=== PATIENT | male | born 1985 | race Caucasian/White ===

== ENCOUNTER 2018-08-01 17:01 | Emergency (ER) | payer MEDICAID ==
[2018-08-01] MEDS ORDERED: CYCLOBENZAPRINE 10 MG TABLET PO STA (17:15)
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
[2018-08-01 18:59] VITALS: BP 123/74
== END 2018-08-01 18:57 | disposition home or self-care (01) ==
LOC: ED 17:01
DX: S20.229A Contusion of unspecified back wall of thorax, initial encounter (principal); W51.XXXA Accidental striking against or bumped into by another person, initial encounter; R03.0 Elevated blood-pressure reading, without diagnosis of hypertension
CPT/HCPCS: 72070; 99283; A9270

== ENCOUNTER 2019-04-28 17:34 | Emergency (ER) | payer MEDICAID ==
[2019-04-28] MEDS ORDERED: KETOROLAC 60 MG/2 ML VIAL IM STA (18:02)
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
[2019-04-28 18:22] LABS: BASOPHILS # (AUTO) 0.1 10^3/uL (0.0-0.1); BASOPHILS % (AUTO) 0.8 %; EOSINOPHILS # (AUTO) 0.4 10^3/uL (0.0-0.7); EOSINOPHILS % (AUTO) 4.8 %; HGB - HEMOGLOBIN 14.4 g/dL (14.0-18.0); LYMPHOCYTES # (AUTO) 2.8 10^3/uL (1.5-3.5); LYMPHOCYTES % (AUTO) 33.7 %; MEAN CORPUSCULAR HEMOGLOBIN 30.3 pg (27.0-31.0); MEAN CORPUSCULAR HGB CONC 33.3 g/dL (32.0-36.0); MEAN CORPUSCULAR VOLUME 91.2 fL (80.0-94.0); MEAN PLATELET VOLUME 10.8 fL (7.4-11.4); MONOCYTES # (AUTO) 0.7 10^3/uL (0.0-1.0); MONOCYTES % (AUTO) 8.5 %; NEUTROPHILS # (AUTO) 4.2 10^3/uL (1.5-6.6); NEUTROPHILS % (AUTO) 51.4 %; PLT - PLATELET COUNT 245 10^3/uL (130-450); RED BLOOD COUNT 4.75 10^6/uL (4.70-6.10); RED CELL DISTRIBUTION WIDTH 12.7 % (12.0-15.0); WHITE BLOOD COUNT 8.3 x10^3/uL (4.8-10.8)
[2019-04-28 18:36] LABS: CREATININE 0.7 mg/dL (0.6-1.2)
--- NOTE | 2019-04-28 19:00 | XRAY Report ---
Reason: R knee pain, s/p fall Procedure Date: 04/28/2019 Accession Number: [id number] / [id number] Procedure: XR - Knee 4 View RT CPT Code: FULL RESULT: EXAM: RIGHT KNEE RADIOGRAPHY EXAM DATE: 04/28/2019 06:48 PM. CLINICAL HISTORY: R knee pain, s/p fall. COMPARISON: None. TECHNIQUE: 4 views, including oblique views. FINDINGS: Bones: No definite fracture or other bone lesion. Insertional calcification of the patella. Small exostosis arising from the medial proximal tibial metaphysis and pointing distally. Joints: Unremarkable. No definite effusion. Soft Tissues: Mild prepatellar soft tissue swelling. IMPRESSION: 1. Mild soft tissue swelling. 2. Incidental chronic findings as noted. RADIA
--- NOTE | 2019-04-28 19:01 | XRAY Report ---
Reason: R ankle pain x 2 weeks, s/p fall Procedure Date: 04/28/2019 Accession Number: [id number] / [id number] Procedure: XR - Ankle 3 View RT CPT Code: FULL RESULT: EXAM: RIGHT ANKLE RADIOGRAPHY EXAM DATE: 04/28/2019 06:48 PM. CLINICAL HISTORY: R ankle pain x 2 weeks, s/p fall. COMPARISON: None. TECHNIQUE: 3 views. FINDINGS: Bones: Regular thickening along the lateral surface of the distal tibial metaphysis and diametaphysis, most likely related to old trauma. No acute fracture or other bone lesion. Joints: Normal. No effusion. No subluxations. The ankle mortise is normally aligned. Soft Tissues: Mild soft tissue swelling over the malleoli. IMPRESSION: Soft tissue swelling. RADIA
[2019-04-28 19:24] VITALS: BP 134/77
== END 2019-04-28 19:24 | disposition home or self-care (01) ==
LOC: ED 17:34
DX: S39.012A Strain of muscle, fascia and tendon of lower back, initial encounter (principal); S93.401A Sprain of unspecified ligament of right ankle, initial encounter; W18.40XA Slipping, tripping and stumbling without falling, unspecified, initial encounter; F17.200 Nicotine dependence, unspecified, uncomplicated
CPT/HCPCS: 36415; 80048; 85025; 96372; 99284

== ENCOUNTER 2019-06-05 20:21 | Emergency (ER) | payer MEDICAID ==
[2019-06-05 20:34] VITALS: BP 136/114
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
[2019-06-05] MEDS ORDERED: DEXAMETHASONE 10 MG/ML VIAL PO STA (21:56)
[2019-06-05] MEDS ORDERED: CHERRY SYRUP 10 ML UDC PO ONE (21:56)
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
== END 2019-06-05 23:49 | disposition home or self-care (01) ==
LOC: ED 20:21
DX: S90.02XA Contusion of left ankle, initial encounter (principal); S90.32XA Contusion of left foot, initial encounter; V43.52XA Car driver injured in collision with other type car in traffic accident, initial encounter; Y92.481 Parking lot as the place of occurrence of the external cause; F17.200 Nicotine dependence, unspecified, uncomplicated
CPT/HCPCS: 29515; 73610; 73630; 99282; 99283; A9270

== ENCOUNTER 2019-06-10 16:34 | Emergency (ER) | payer MEDICAID ==
[2019-06-10 16:44] VITALS: BP 145/89
--- NOTE | 2019-06-10 17:19 | ED Physician Documentation ---
History of Present Illness - Stated complaint Stated Complaint: MED REFILL - Chief complaint Chief Complaint: General - History obtained from History obtained from: Patient - History of Present Illness Timing: Other (34-year-old gentleman with history of Bipolar disorder presents requesting her medication refill of Wellbutrin, Seroquel and Adderall. He knows the doses and these are confirmed with him. There is no suicidal ideation or homicidal ideas he does have follow-up in a few weeks with susan for ongoing psychiatric care.) Review of Systems Constitutional: reports: Reviewed and negative Throat: reports: Reviewed and negative Cardiac: reports: Reviewed and negative Respiratory: reports: Reviewed and negative PD PAST MEDICAL HISTORY - Past Medical History Cardiovascular: None Respiratory: None Neuro: None Endocrine/Autoimmune: None GI: None : None HEENT: None Psych: Anxiety, Bipolar disorder, ADD/ADHD Musculoskeletal: None Derm: None - Past Surgical History Past Surgical History: Yes - Present Medications Home Medications: Ambulatory Orders Medication Instructions Recorded Confirmed Quetiapine Fumarate [Seroquel] 2 tab PO QPM #60 tablet 06/10/19 buPROPion [Wellbutrin Sr] 150 mg PO BID #60 tablet 06/10/19 - Allergies Allergies/Adverse Reactions: Allergies Allergy/AdvReac Type Severity Reaction Status Date / Time Opioids - Morphine Analogues Allergy Unknown Verified 06/05/19 20:34 - Social History Does the pt smoke?: Yes Smoking Status: Current every day smoker Does the pt drink ETOH?: No Does the pt have substance abuse?: No - Immunizations Immunizations are current?: Yes Immunizations: TDAP current <10years PD ED PE NORMAL - General General: Alert and oriented X 3, No acute distress - HEENT HEENT: PERRL, EOMI - Neck Neck: Supple, no meningeal sign, No bony TTP - Neuro Neuro: Alert and oriented X 3, rail layer 2-12 intact, No motor deficit, No sensory deficit, Normal speech - Psych Psych: Normal mood, Normal affect Results - Vitals Vitals: Vital Signs - 24 hr 06/10/19 16:42 Temperature 36.4 C L Heart Rate 82 Respiratory 20 Rate Blood Pressure 145/89 H O2 Saturation 100 Oxygen O2 Source Room air PD MEDICAL DECISION MAKING - ED course ED course: 34-year-old gentleman here for medication refill and psychiatric medications. He declined offers at inpatient hospitalization. I discussed with him that I was unwilling to prescribe Adderall as that is not an emergency at all but I was willing to give him his Wellbutrin and Seroquel. Departure - Departure Disposition: 01 Home, Self Care Clinical Impression: Bipolar 1 disorder Condition: Good Record reviewed to determine appropriate education?: Yes Instructions: ED Manic Depression Prescriptions: buPROPion [Wellbutrin Sr] 150 mg PO BID #60 tablet Quetiapine Fumarate [Seroquel] 2 tab PO QPM #60 tablet Comments: Followup with [facility] for ongoing medication management and refills. Return for worsening symptoms or if you change your mind about inpatient hospitalization.
== END 2019-06-10 17:44 | disposition home or self-care (01) ==
LOC: ED 16:34
DX: F31.9 Bipolar disorder, unspecified (principal); Z76.0 Encounter for issue of repeat prescription; F17.200 Nicotine dependence, unspecified, uncomplicated
CPT/HCPCS: 99282; 99283

== ENCOUNTER 2019-06-15 17:46 | Emergency (ER) | payer OTHER, MEDICAID ==
[2019-06-15 17:52] VITALS: BP 147/98
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
== END 2019-06-15 19:45 | disposition home or self-care (01) ==
LOC: ED 17:46
DX: M25.861 Other specified joint disorders, right knee (principal); S90.02XA Contusion of left ankle, initial encounter; V89.2XXA Person injured in unspecified motor-vehicle accident, traffic, initial encounter; F17.200 Nicotine dependence, unspecified, uncomplicated
CPT/HCPCS: 99282; 99283

== ENCOUNTER 2019-06-24 08:37 | Outpatient (CLI) | payer MEDICAID ==
[2019-06-24 12:26] LABS: BASOPHILS % (AUTO) 0.6 %; EOSINOPHILS # (AUTO) 0.2 10^3/uL (0.0-0.7); EOSINOPHILS % (AUTO) 3.5 %; HGB - HEMOGLOBIN 13.5 g/dL (14.0-18.0); LYMPHOCYTES # (AUTO) 1.9 10^3/uL (1.5-3.5); LYMPHOCYTES % (AUTO) 27.8 %; MEAN CORPUSCULAR HEMOGLOBIN 30.2 pg (27.0-31.0); MEAN CORPUSCULAR HGB CONC 32.5 g/dL (32.0-36.0); MEAN CORPUSCULAR VOLUME 92.8 fL (80.0-94.0); MEAN PLATELET VOLUME 11.7 fL (7.4-11.4); MONOCYTES # (AUTO) 0.7 10^3/uL (0.0-1.0); MONOCYTES % (AUTO) 9.5 %; PLT - PLATELET COUNT 241 10^3/uL (130-450); RED BLOOD COUNT 4.47 10^6/uL (4.70-6.10); RED CELL DISTRIBUTION WIDTH 13.1 % (12.0-15.0); WHITE BLOOD COUNT 6.8 x10^3/uL (4.8-10.8)
[2019-06-24 12:34] LABS: BUN - BLOOD UREA NITROGEN 20 mg/dL (6-20); CALCIUM 8.6 mg/dL (8.5-10.3); CARBON DIOXIDE - CO2 27 mmol/L (21-32); CHLORIDE 106 mmol/L (101-111); CHOL/HDL RATIO 6.4 (<5.0); CHOLESTEROL 192 mg/dL; CREATININE 0.9 mg/dL (0.6-1.2); GFR - MDRD 97 (>89); GLUCOSE 131 mg/dL (70-100); HDL CHOLESTEROL 30 mg/dL; LDL CHOLESTEROL,CALCULATED 98 mg/dL; LDL/HDL RATIO 3.3 (<3.6); SODIUM 140 mmol/L (135-145); VLDL CHOLESTEROL 64 mg/dL
== END 2019-06-24 08:45 | disposition home or self-care (01) ==
LOC: LAB.N 08:37
PROVIDERS: ATTEND Physician Assistant Medical
DX: Z00.00 Encounter for general adult medical examination without abnormal findings (principal); F41.8 Other specified anxiety disorders; F31.9 Bipolar disorder, unspecified; S90.02XD Contusion of left ankle, subsequent encounter; S93.492D Sprain of other ligament of left ankle, subsequent encounter; Z72.0 Tobacco use
CPT/HCPCS: 36415; 80048; 80061; 83721; 84443; 85025

== ENCOUNTER 2019-06-30 09:19 | Outpatient (CLI) | payer MEDICAID | END 2019-06-30 09:20 | disposition critical access hospital (66) | LOC: EMS 09:19 | PROVIDERS: ATTEND Surgery | DX: R07.9 Chest pain, unspecified (principal) | CPT/HCPCS: A0425; A0427; A0999 ==

== ENCOUNTER 2019-06-30 09:23 | Emergency (ER) | payer MEDICAID ==
[2019-06-30 09:54] LABS: BASOPHILS # (AUTO) 0.1 10^3/uL (0.0-0.1); BASOPHILS % (AUTO) 0.6 %; EOSINOPHILS # (AUTO) 0.3 10^3/uL (0.0-0.7); EOSINOPHILS % (AUTO) 3.3 %; LYMPHOCYTES # (AUTO) 2.2 10^3/uL (1.5-3.5); LYMPHOCYTES % (AUTO) 25.3 %; MEAN CORPUSCULAR HEMOGLOBIN 30.6 pg (27.0-31.0); MEAN CORPUSCULAR HGB CONC 33.4 g/dL (32.0-36.0); MEAN CORPUSCULAR VOLUME 91.7 fL (80.0-94.0); MEAN PLATELET VOLUME 10.7 fL (7.4-11.4); MONOCYTES # (AUTO) 0.7 10^3/uL (0.0-1.0); MONOCYTES % (AUTO) 8.3 %; NEUTROPHILS # (AUTO) 5.4 10^3/uL (1.5-6.6); NEUTROPHILS % (AUTO) 61.8 %; PLT - PLATELET COUNT 243 10^3/uL (130-450); RED BLOOD COUNT 4.57 10^6/uL (4.70-6.10); RED CELL DISTRIBUTION WIDTH 12.5 % (12.0-15.0); WHITE BLOOD COUNT 8.8 x10^3/uL (4.8-10.8)
[2019-06-30 10:07] LABS: ALBUMIN 3.7 g/dL (3.2-5.5); ALBUMIN/GLOBULIN RATIO 1.1 (1.0-2.2); BILIRUBIN,TOTAL 0.4 mg/dL (0.2-1.0); CALCIUM 8.9 mg/dL (8.5-10.3); CREATININE 1.1 mg/dL (0.6-1.2)
--- NOTE | 2019-06-30 10:29 | XRAY Report ---
Reason: chest pain Procedure Date: 06/30/2019 Accession Number: [id number] / [id number] Procedure: XR - Chest 1 View X-Ray CPT Code: 35937 FULL RESULT: EXAM: CHEST RADIOGRAPHY EXAM DATE: 06/30/2019 09:48 AM. CLINICAL HISTORY: Chest pain. COMPARISON: THORACIC SPINE 2 VIEW 08/01/2018 6:00 PM. TECHNIQUE: 1 view. FINDINGS: Lungs/Pleura: No focal opacities evident. No pleural effusion. No pneumothorax. Mediastinum: Within exam limitations, the cardiomediastinal contour is normal. Other: None. IMPRESSION: No acute cardiopulmonary abnormality. RADIA
--- NOTE | 2019-06-30 10:47 | ED Physician Documentation ---
PD HPI CHEST PAIN - Stated complaint Stated Complaint: CP - Chief complaint Chief Complaint: Cardiac - History obtained from History obtained from: Patient - History of Present Illness Timing - onset: Today Timing - onset during: Emotional event Timing - duration: Hours Timing - details: Abrupt onset, Still present Quality: Pressure, Sharp Location: Substernal, Right chest Improved by: Nothing Worsened by: Other (nothing) Associated symptoms: Feeling faint / dizzy. No: Shortness of air, Diaphoresis, Nausea Similar symptoms before: No diagnosis Recently seen: Emergency Dept - Additional information Additional information: 34-year old male who has a child who has been taken by CPS has developed significant anxiety and frustration regarding his case and today he was in court when he developed right substernal chest pain. Review of Systems Constitutional: denies: Fever Eyes: denies: Decreased vision Ears: denies: Ear pain Nose: reports: Congestion Throat: denies: Sore throat Cardiac: reports: Chest pain / pressure. denies: Palpitations, Pedal edema, Calf pain Respiratory: denies: Dyspnea, Cough GI: denies: Abdominal Pain, Nausea, Vomiting : denies: Dysuria, Frequency PD PAST MEDICAL HISTORY - Past Medical History Cardiovascular: None Respiratory: None Neuro: None Endocrine/Autoimmune: None GI: None : None HEENT: None Psych: Anxiety, Bipolar disorder, ADD/ADHD Musculoskeletal: None Derm: None - Past Surgical History Past Surgical History: Yes - Present Medications Home Medications: Ambulatory Orders Medication Instructions Recorded Confirmed Quetiapine Fumarate [Seroquel] 2 tab PO QPM #60 tablet 06/10/19 buPROPion [Wellbutrin Sr] 150 mg PO BID #60 tablet 06/10/19 Cyclobenzaprine [Flexeril] 10 mg PO TID PRN #10 tablet 06/15/19 - Allergies Allergies/Adverse Reactions: Allergies Allergy/AdvReac Type Severity Reaction Status Date / Time Opioids - Morphine Analogues Allergy Unknown Verified 06/30/19 09:31 - Social History Does the pt smoke?: Yes Smoking Status: Current every day smoker Does the pt drink ETOH?: No Does the pt have substance abuse?: No - Immunizations Immunizations are current?: Yes Immunizations: TDAP current <10years PD ED PE NORMAL - Vitals Vital signs reviewed: Yes (normal ) - General General: Alert and oriented X 3, Well developed/nourished, Other (appears anxious and in pain ) - HEENT HEENT: Atraumatic, PERRL, EOMI - Neck Neck: Supple, no meningeal sign - Cardiac Cardiac: RRR, No murmur - Respiratory Respiratory: No respiratory distress, Clear bilaterally, Other (chest wall tenderness over the right anterior chest wall ) - Abdomen Abdomen: Soft, Non tender - Back Back: No CVA TTP, No spinal TTP - Derm Derm: Normal color, Warm and dry, No rash - Extremities Extremities: No deformity, No edema - Neuro Neuro: Alert and oriented X 3, outpatient dietitian 2-12 intact, No motor deficit, No sensory deficit, Normal speech Eye Opening: Spontaneous Motor: Obeys Commands Verbal: Oriented GCS Score: 15 - Psych Psych: Other (mood is anxious and the affect is flat) Results - Vitals Vitals: Vital Signs - 24 hr 06/30/19 06/30/19 06/30/19 09:28 10:00 10:30 Temperature 36.0 C L Heart Rate 90 79 72 Respiratory 19 29 H 26 H Rate Blood Pressure 111/68 121/69 110/64 O2 Saturation 99 97 99 06/30/19 06/30/19 06/30/19 11:00 11:30 12:00 Temperature Heart Rate 94 87 77 Respiratory 17 20 18 Rate Blood Pressure 106/57 L 127/83 H 136/90 H O2 Saturation 99 99 98 06/30/19 06/30/19 06/30/19 12:29 12:30 13:00 Temperature Heart Rate 70 69 80 Respiratory 20 21 18 Rate Blood Pressure 124/74 99/63 125/90 H O2 Saturation 100 98 98 06/30/19 06/30/19 06/30/19 13:30 14:00 14:52 Temperature 36.9 C Heart Rate 78 81 80 Respiratory 20 18 20 Rate Blood Pressure 141/82 H 114/82 H 118/60 O2 Saturation 98 97 98 Oxygen O2 Source Room air - EKG (time done) 1034 Rate: Rate (enter#) (66) Rhythm: NSR Ischemia: Q waves Compare to prior EKG: Old EKG unavailable Computer interpretation: Agree with computer - Labs Labs: Laboratory Tests 06/30/19 06/30/19 06/30/19 09:45 09:45 09:45 WBC 8.8 RBC 4.57 L Hgb 14.0 Hct 41.9 L MCV 91.7 MCH 30.6 MCHC 33.4 RDW 12.5 Plt Count 243 MPV 10.7 Neut # (Auto) 5.4 Lymph # (Auto) 2.2 Emery # (Auto) 0.7 Eos # (Auto) 0.3 Baso # (Auto) 0.1 Absolute Nucleated RBC 0.00 Nucleated RBC % 0.0 Sodium 139 Potassium 3.9 Chloride 104 Carbon Dioxide 24 Anion Gap 11.0 BUN 20 Creatinine 1.1 Estimated GFR (MDRD) 77 L Glucose 146 H Calcium 8.9 Total Bilirubin 0.4 AST 21 ALT 28 Alkaline Phosphatase 80 Troponin I High Sens 4.1 Total Protein 7.0 Albumin 3.7 Globulin 3.3 Albumin/Globulin Ratio 1.1 Lipase 32 - Rads (name of study) chest Radiology: Prelim report reviewed (IMPRESSION: No acute cardiopulmonary abnormality.), EMP read indepedently, See rad report u/s abd Radiology: Prelim report reviewed (Impression: 1. No cholelithiasis or supporting ultrasound evidence of acute cholecystitis. 2 Common bile duct is borderline mildly prominent. MRCP could be performed for further evaluation if clinically warranted. 3. Fatty liver.), EMP read indepedently, See rad report PD MEDICAL DECISION MAKING - ED course Complexity details: reviewed results, re-evaluated patient, considered differential, d/w patient, d/w family ED course: 34-year-old male under significant amount of stress has developed right-sided chest pain is diagnostics are unremarkable he has some improvement with use of Toradol intravenously and he is discharged to home. The director of social services does evaluate the patient with some remarks he has made about feeling frustrated and she has provided some additional resources. Departure - Departure Disposition: 01 Home, Self Care Clinical Impression: Atypical chest pain, Stress reaction Condition: Stable Instructions: ED Stress React, ED Chest Pain Atypical Unkn Cause Follow-Up: [facility] [Provider Group] Discharge Date/Time: 06/30/19 15:01
--- NOTE | 2019-06-30 11:14 | Ultrasound Report ---
Reason: RUQ pain chest pain Procedure Date: 06/30/2019 Accession Number: [id number] / [id number] Procedure: US - Abdomen Limited CPT Code: FULL RESULT: EXAM: ABDOMEN ULTRASOUND LIMITED, RUQ EXAM DATE: 06/30/2019 10:39 AM. CLINICAL HISTORY: RUQ pain chest pain. COMPARISON: None. TECHNIQUE: Real-time scanning was performed with static images obtained. FINDINGS: Liver: Mildly inhomogeneous, increased echogenicity with decreased through-transmission, suggesting diffuse fatty infiltration.No focal lesion. Liver measures 14.8 cm craniocaudally. Main portal vein flow: Hepatopetal. Gallbladder: Gallbladder wall thickness is normal.No gallstones.Sonographic Brennan sign is absent, per technologist's notes. Biliary System: Common bile duct measures 6.0 mm. No intrahepatic ductal dilatation. Pancreas: Visualized portion is unremarkable. Right Kidney: 8.9 cm longitudinally. Normal echotexture.No hydronephrosis.No contour-deforming mass.No calculus. Other: IMPRESSION: 1. No cholelithiasis or supporting ultrasound evidence of acute cholecystitis. 2. Common bile duct is borderline mildly prominent. MRCP could be performed for further evaluation if clinically warranted. 3. Fatty liver. RADIA
[2019-06-30] MEDS ORDERED: LIDOCAINE VISCOUS 2% 15 ML UDC MM STA (11:30)
[2019-06-30] MEDS ORDERED: MAG HYDROX/AL HYDROX/SIMETH 30 ML UDC PO STA (11:30)
[2019-06-30] MEDS ORDERED: DEXAMETHASONE 10 MG/ML VIAL IVP STA (12:22)
[2019-06-30] MEDS ORDERED: KETOROLAC 30 MG/ML VIAL IVP STA (14:44)
[2019-06-30 14:52] VITALS: BP 118/60
== END 2019-06-30 15:01 | disposition home or self-care (01) ==
LOC: EDUNIT# → ED 09:23
DX: R07.89 Other chest pain (principal); F43.9 Reaction to severe stress, unspecified; F17.200 Nicotine dependence, unspecified, uncomplicated
CPT/HCPCS: 36415; 71045; 76705; 80053; 83690; 84484; 85025; 93005; 96374; 96375; 99284; A9270; 81001; 81003; 87086

== ENCOUNTER 2019-07-30 17:54 | Emergency (ER) | payer MEDICAID ==
[2019-07-30] MEDS ORDERED: IPRATROPIUM/ALBUTEROL 3 ML NEB INH STA (18:28)
[2019-07-30] MEDS ORDERED: predniSONE 20 MG TABLET PO STA (18:29)
[2019-07-30] MEDS ORDERED: BENZONATATE 100 MG CAPSULE PO STA (18:29)
[2019-07-30] MEDS ORDERED: IBUPROFEN 800 MG TABLET PO STA (18:30)
--- NOTE | 2019-07-30 18:40 | ED Physician Documentation ---
PD HPI URI - Stated complaint Stated Complaint: SOA/COUGHING - Chief complaint Chief Complaint: Heent - History obtained from History obtained from: Patient, Family - History of Present Illness Timing - onset: How many days ago (2-3) Timing duration: Days Timing details: Gradual onset Pain level max: 5 Pain level now: 5 Associated symptoms: Ear pain, Nasal congestion, Rhinorrhea, Sore throat, Dry cough, Dyspnea (Has used inhalers in the past, not using them currently). No: Fever, Chills Contributing factors: Sick contact, COPD / asthma Improves by: Rest Worsened by: Activity, Breathing Recently seen: Not recently seen - Additional information Additional information: Patient smokes, states he is having difficulty smoking because of the difficulty breathing. Review of Systems Constitutional: denies: Fever, Chills Nose: reports: Rhinorrhea / runny nose, Congestion Respiratory: reports: Dyspnea, Cough, Wheezing GI: denies: Nausea, Vomiting, Diarrhea Skin: denies: Rash Musculoskeletal: denies: Neck pain, Back pain Neurologic: denies: Headache PD PAST MEDICAL HISTORY - Past Medical History Cardiovascular: None Respiratory: None Neuro: None Endocrine/Autoimmune: None GI: None : None HEENT: None Psych: Anxiety, Bipolar disorder, ADD/ADHD Musculoskeletal: None Derm: None - Past Surgical History Past Surgical History: Yes - Present Medications Home Medications: Ambulatory Orders Medication Instructions Recorded Confirmed Quetiapine Fumarate [Seroquel] 2 tab PO QPM #60 tablet 06/10/19 buPROPion [Wellbutrin Sr] 150 mg PO BID #60 tablet 06/10/19 Cyclobenzaprine [Flexeril] 10 mg PO TID PRN #10 tablet 06/15/19 Albuterol Sulf [Ventolin Hfa 1 - 2 puffs INH Q4HR PRN #1 inhaler 07/30/19 Inhaler] Benzonatate [Tessalon Perle] 100 - 200 mg PO TID PRN #30 capsule 07/30/19 Cetirizine HCl/Pseudoephedrine 1 each PO BID PRN #30 tab.er.12h 07/30/19 [Zyrtec-D Tablet] predniSONE [Deltasone] 10 mg PO [id number] #42 tab 07/30/19 - Allergies Allergies/Adverse Reactions: Allergies Allergy/AdvReac Type Severity Reaction Status Date / Time Opioids - Morphine Analogues Allergy Unknown Verified 07/30/19 18:07 - Social History Does the pt smoke?: Yes Smoking Status: Current every day smoker Does the pt drink ETOH?: No Does the pt have substance abuse?: No - Immunizations Immunizations are current?: Yes Immunizations: TDAP current <10years PD ED PE NORMAL - Vitals Vital signs reviewed: Yes - General General: Alert and oriented X 3, No acute distress, Well developed/nourished - HEENT HEENT: PERRL, Ears normal, Moist mucous membranes, Pharynx benign, Other (Clear rhinorrhea) - Neck Neck: Supple, no meningeal sign - Cardiac Cardiac: RRR - Respiratory Respiratory: No respiratory distress, Other (Diminished breath sounds and wheezing bilaterally) - Abdomen Abdomen: Soft, Non tender, Non distended - Derm Derm: Warm and dry - Neuro Neuro: Alert and oriented X 3 - Psych Psych: Normal mood, Normal affect Results - Vitals Vitals: Vital Signs - 24 hr 07/30/19 07/30/19 07/30/19 18:08 18:58 19:52 Temperature 37.0 C 36.7 C Heart Rate 88 78 85 Respiratory 16 20 18 Rate Blood Pressure 132/84 H 133/72 H O2 Saturation 97 94 07/30/19 20:35 Temperature Heart Rate 80 Respiratory 20 Rate Blood Pressure O2 Saturation Oxygen O2 Source Room air - Rads (name of study) cxr Radiology: Prelim report reviewed, EMP read contemporaneously, See rad report (no acute disease) PD MEDICAL DECISION MAKING - ED course Complexity details: reviewed results, re-evaluated patient, considered differential, d/w patient ED course: Appears to have a viral URI. No evidence of pneumonia on x-ray. Feels better after nebulizer treatment. Will place on an inhaler, steroids and cough medication for home as well as decongestants. Patient is well-appearing, nontoxic. Afebrile. No hypoxia. No respiratory distress. Patient counseled regarding signs and symptoms for which I believe and urgent re-evaluation would be necessary. Patient with good understanding of and agreement to plan and is comfortable going home at this time This document was made in part using voice recognition software. While efforts are made to proofread this document, sound alike and grammatical errors may occur. Departure - Departure Disposition: 01 Home, Self Care Clinical Impression: Viral URI Condition: Good Instructions: ED URI Viral W Wheezing Follow-Up: Kings Hyatt PA-C [Primary Care Provider] - Within 1 week Prescriptions: Albuterol Sulf [Ventolin Hfa Inhaler] 1 - 2 puffs INH Q4HR PRN #1 inhaler PRN Reason: Shortness Of Air/Wheezing Benzonatate [Tessalon Perle] 100 - 200 mg PO TID PRN #30 capsule PRN Reason: Cough Cetirizine HCl/Pseudoephedrine [Zyrtec-D Tablet] 1 each PO BID PRN #30 tab.er.12h PRN Reason: nasal congestion predniSONE [Deltasone] 10 mg PO [id number] #42 tab Comments: there is no pneumonia on your chest xray. Drink plenty of fluids and rest. Discharge Date/Time: 07/30/19 20:42
--- NOTE | 2019-07-30 19:34 | XRAY Report ---
Reason: cough Procedure Date: 07/30/2019 Accession Number: [id number] / [id number] Procedure: XR - Chest 2 View X-Ray CPT Code: 62919 FULL RESULT: EXAM: CHEST RADIOGRAPHY EXAM DATE: 07/30/2019 06:53 PM. CLINICAL HISTORY: Cough. COMPARISON: 06/30/2019. TECHNIQUE: 2 views. FINDINGS: Lungs/Pleura: No focal opacities evident. No pleural effusion. No pneumothorax. Normal volumes. Mediastinum: Heart and mediastinal contours are unremarkable. Other: None. IMPRESSION: Normal 2-view chest radiography. RADIA
[2019-07-30 19:53] VITALS: BP 133/72
[2019-07-30] MEDS ORDERED: ALBUTEROL NEB 2.5 MG/3 ML INH STA (20:09)
== END 2019-07-30 20:42 | disposition home or self-care (01) ==
LOC: ED 17:54
DX: J06.9 Acute upper respiratory infection, unspecified (principal); F17.200 Nicotine dependence, unspecified, uncomplicated
CPT/HCPCS: 71046; 94640; 94664; 99284; A9270; J7512

== ENCOUNTER 2019-08-11 18:21 | Emergency (ER) | payer MEDICAID ==
[2019-08-11 18:29] VITALS: BP 136/86
--- NOTE | 2019-08-11 18:51 | ED Physician Documentation ---
History of Present Illness - Stated complaint Stated Complaint: LT ANKLE PX - Chief complaint Chief Complaint: Ext Problem - Additonal information Additional information: This is a 34-year-old male who presents requesting an MRI of his left ankle. He has had ongoing ankle pain for 6 weeks. He atates that he had a past fracture of his ankle and he has hardware in there, and Since his fracture he has intermittently had pain, but it has been worse recently. He has been working with a physical therapist, and he has had x-rays which do not show any broken bones or acute abnormalities, so his provider ordered an MRI. He presents in hopes of getting MRI done tonight. No fever, he is able to move the ankle, no redness around the joint. Review of Systems Constitutional: denies: Fever Musculoskeletal: reports: Extremity pain PD PAST MEDICAL HISTORY - Past Medical History Cardiovascular: None Respiratory: None Neuro: None Endocrine/Autoimmune: None GI: None : None HEENT: None Psych: Anxiety, Bipolar disorder, ADD/ADHD Musculoskeletal: None Derm: None - Past Surgical History Past Surgical History: Yes - Present Medications Home Medications: Ambulatory Orders Medication Instructions Recorded Confirmed Quetiapine Fumarate [Seroquel] 2 tab PO QPM #60 tablet 06/10/19 buPROPion [Wellbutrin Sr] 150 mg PO BID #60 tablet 06/10/19 Cyclobenzaprine [Flexeril] 10 mg PO TID PRN #10 tablet 06/15/19 Albuterol Sulf [Ventolin Hfa 1 - 2 puffs INH Q4HR PRN #1 inhaler 07/30/19 Inhaler] Benzonatate [Tessalon Perle] 100 - 200 mg PO TID PRN #30 capsule 07/30/19 Cetirizine HCl/Pseudoephedrine 1 each PO BID PRN #30 tab.er.12h 07/30/19 [Zyrtec-D Tablet] predniSONE [Deltasone] 10 mg PO [id number] #42 tab 07/30/19 - Allergies Allergies/Adverse Reactions: Allergies Allergy/AdvReac Type Severity Reaction Status Date / Time Opioids - Morphine Analogues Allergy Unknown Verified 08/11/19 18:24 - Social History Does the pt smoke?: Yes Smoking Status: Current every day smoker Does the pt drink ETOH?: No Does the pt have substance abuse?: No - Immunizations Immunizations are current?: Yes Immunizations: TDAP current <10years PD ED PE NORMAL - Vitals Vital signs reviewed: Yes - General General: Alert and oriented X 3, No acute distress - Neck Neck: Supple, no meningeal sign - Cardiac Cardiac: RRR - Respiratory Respiratory: No respiratory distress - Derm Derm: Warm and dry - Extremities Extremities: No deformity, Other (Well-healed scar over the left medial malleolus. There is some mild tenderness medial to the Achilles tendon and along the plantar fascia. There is no significant bony tenderness. Patient has good range of motion of his ankle, brisk capillary refill, and intact sensation to light touch.) - Neuro Neuro: Alert and oriented X 3 - Psych Psych: Normal mood, Normal affect Results - Vitals Vitals: Vital Signs - 24 hr 08/11/19 18:24 Temperature 36.5 C Heart Rate 86 Respiratory 16 Rate Blood Pressure 136/86 H O2 Saturation 98 Oxygen O2 Source Room air PD MEDICAL DECISION MAKING - ED course ED course: Patient is nontoxic-appearing, he has no bony tenderness on palpation of his ank le, he has had negative x-rays recently, and can bear weight on the ankle, I have a low suspicion for acute osseous abnormality, and do not feel that repeat imaging will be revealing tonight with plain films. I discussed with patient that we are unable to obtain an MRI overnight in the emergency department, and that we generally are not able to obtain emergent MRIs for chronic extremity pain. I recommend that he discuss with his provider and his insurance how to get this MRI of his ankle scheduled. I do not see signs of septic arthritis, or other emergent condition with his ankle at this time. He was given 1 dose of pain medication here in the emergency department. Patient asked that I provide him a note saying that he is no longer infectious from a recent cold so that he can visit his [place] in [place] [facility] [place] He had a viral syndrome last week with cough, cold, rhinorrhea and fever, he has been afebrile for 4 to 5 days, and has only a very mild dry cough, no other symptoms at this time. I do not feel that he is likely to still be infectious, and I did write a note to this effect. Departure - Departure Disposition: 01 Home, Self Care Clinical Impression: Ankle pain, left Qualifiers: Chronicity: acute Qualified Code(s): M25.572 - Pain in left ankle and joints of left foot Condition: Good Instructions: ED ELIZ Comments: You were seen today for some chronic pain in your left ankle. We are unable to order MRIs for extremity problems in the emergency department, please follow-up with your ordering provider and your insurance company to figure out when you can obtain the MRI rest ice and elevate the ankle and attempt to help with the pain. If you are developing worsening symptoms such as fever or redness around the joint, return to the emergency department for reevaluation. Forms: Activity restrictions Discharge Date/Time: 08/11/19 19:30
[2019-08-11] MEDS ORDERED: ACETAMINOPHEN 325 MG TABLET PO STA (19:10)
[2019-08-11] MEDS ORDERED: KETOROLAC 30 MG/ML VIAL IVP STA (19:10)
[2019-08-11] MEDS ORDERED: oxyCODONE 5 MG TABLET PO STA (19:10)
== END 2019-08-11 19:30 | disposition home or self-care (01) ==
LOC: ED 18:21
DX: M25.572 Pain in left ankle and joints of left foot (principal); F17.200 Nicotine dependence, unspecified, uncomplicated
CPT/HCPCS: 96374; 99282; 99283; A9270

== ENCOUNTER 2019-08-18 03:30 | Emergency (ER) | payer MEDICAID ==
--- NOTE | 2019-08-18 04:35 | ED Physician Documentation ---
PD HPI HEADACHE - Stated complaint Stated Complaint: N/V HEADACHE - Chief complaint Chief Complaint: Neuro - History obtained from History obtained from: Patient - History of Present Illness Timing - onset: Enter time (02:00), Today Timing - onset during: Other (driving) Timing - details: Abrupt onset Worst headache ever?: No: Worst headache ever? Location: Global Quality: Throbbing Improved by: Dark room Worsened by: Light Similar symptoms before: Diagnosis (migraine) Recently seen: Emergency Dept - Additional information Additional information: 1-2 [facility] ED visits each month for past 5 months, siria is his 8th visit in this span. asleep when I first enter room. awakens only after repeated verbal stimuli ( c/w being asleep; not to an extent that would suggest AMS). patient c/o PETERSON. he says he was driving when he developed generalized PETERSON with nausea and dizziness. he says he thus drove to [facility] and he vomited while walking from his car while still in parking lot. he says he has been diagnosed with migraine headache and this is similar to previous. patient falls back asleep easily during H+P Review of Systems Constitutional: reports: Reviewed and negative Eyes: reports: Photophobia Cardiac: reports: Reviewed and negative Respiratory: reports: Reviewed and negative GI: reports: Nausea, Vomiting. denies: Abdominal Pain Musculoskeletal: denies: Neck pain Neurologic: reports: Headache. denies: Generalized weakness, Focal weakness, Numbness, Head injury PD PAST MEDICAL HISTORY - Past Medical History Past Medical History: Yes Cardiovascular: None Respiratory: None Neuro: None Endocrine/Autoimmune: None GI: None : None HEENT: None Psych: Anxiety, Bipolar disorder, ADD/ADHD Musculoskeletal: None Derm: None - Past Surgical History Past Surgical History: Yes - Present Medications Home Medications: Ambulatory Orders Medication Instructions Recorded Confirmed Quetiapine Fumarate [Seroquel] 2 tab PO QPM #60 tablet 06/10/19 buPROPion [Wellbutrin Sr] 150 mg PO BID #60 tablet 06/10/19 Cyclobenzaprine [Flexeril] 10 mg PO TID PRN #10 tablet 06/15/19 Albuterol Sulf [Ventolin Hfa 1 - 2 puffs INH Q4HR PRN #1 inhaler 07/30/19 Inhaler] Benzonatate [Tessalon Perle] 100 - 200 mg PO TID PRN #30 capsule 07/30/19 Cetirizine HCl/Pseudoephedrine 1 each PO BID PRN #30 tab.er.12h 07/30/19 [Zyrtec-D Tablet] predniSONE [Deltasone] 10 mg PO [id number] #42 tab 07/30/19 Ondansetron Odt [Zofran] 4 mg TL Q6H PRN #10 tablet 08/18/19 - Allergies Allergies/Adverse Reactions: Allergies Allergy/AdvReac Type Severity Reaction Status Date / Time Opioids - Morphine Analogues Allergy Unknown Verified 08/18/19 03:40 - Social History Does the pt smoke?: Yes Smoking Status: Current every day smoker Does the pt drink ETOH?: No Does the pt have substance abuse?: No - Immunizations Immunizations are current?: Yes Immunizations: TDAP current <10years - POLST Patient has POLST: No PD ED PE NORMAL - Vitals Vital signs reviewed: Yes - General General: No acute distress, Other (obese. drowsy but wakens with verbal stimulus, falls back asleep at times during HPI/ROS) - HEENT HEENT: Atraumatic, PERRL, EOMI, Other (photophobic) - Neck Neck: Supple, no meningeal sign - Cardiac Cardiac: RRR, No murmur - Abdomen Abdomen: Soft, Non tender - Derm Derm: Normal color, Warm and dry - Neuro Neuro: examiner rating clerk 2-12 intact, No motor deficit, No sensory deficit, Normal speech Eye Opening: To Voice Motor: Obeys Commands Verbal: Oriented GCS Score: 14 Results - Vitals Vitals: Oxygen O2 Source Room air PD MEDICAL DECISION MAKING - ED course Complexity details: reviewed old records, re-evaluated patient, considered differential, d/w patient ED course: patient presents with PETERSON, n/v, and dizziness; he says this is c/w previous episodes of migraine headache. given toradol, zofran, and imitrex. on reevaluation, he remains in NAD. I discussed discharge plan with him and he had no questions nor objections. Departure - Departure Disposition: 01 Home, Self Care Clinical Impression: Headache Qualifiers: Headache type: unspecified Headache chronicity pattern: acute headache Intractability: not intractable Qualified Code(s): R51 - Headache Condition: Good Instructions: ED Cephalgia Unspecified Follow-Up: [facility] Hyatt PA-C [Primary Care Provider] - Prescriptions: Ondansetron Odt [Zofran] 4 mg TL Q6H PRN #10 tablet PRN Reason: Nausea / Vomiting Discharge Date/Time: 08/18/19 06:25
[2019-08-18] MEDS ORDERED: ONDANSETRON ODT 4 MG TABLET TL STA (05:03)
[2019-08-18] MEDS ORDERED: SUMAtriptan 6 MG/0.5 ML VIAL SUBQ STA (05:04)
[2019-08-18] MEDS ORDERED: KETOROLAC 60 MG/2 ML VIAL IM STA (05:04)
[2019-08-18 06:17] VITALS: BP 142/90
== END 2019-08-18 06:25 | disposition home or self-care (01) ==
LOC: ED 03:30
DX: R51 Headache (principal); F17.200 Nicotine dependence, unspecified, uncomplicated
CPT/HCPCS: 96372; 99283; 99284; Q0162

== ENCOUNTER 2019-08-21 16:50 | Emergency (ER) | payer MEDICAID ==
--- NOTE | 2019-08-21 20:07 | ED Physician Documentation ---
History of Present Illness - Stated complaint Stated Complaint: RT KNEE PAIN - Chief complaint Chief Complaint: Ext Problem - Additonal information Additional information: This is a 34-year-old male with history of bipolar disorder and a past substance abuse issue, presents with right knee pain. 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 He also noticed a little area of redness over the front of his knee, which is painful to the touch. He has been able to walk on it, but he states that he is in discomfort when he is up and moving around and walking.He had an appointment with his primary care provider to evaluate this issue and to obtain referral for an MRI of his ankle, however he missed this appointment. He has not been taking any medications for because he does not have any at home at this time. Review of Systems Constitutional: denies: Fever Skin: denies: Laceration (s) Musculoskeletal: reports: Extremity pain PD PAST MEDICAL HISTORY - Past Medical History Past Medical History: Yes Cardiovascular: None Respiratory: None Neuro: None Endocrine/Autoimmune: None GI: None : None HEENT: None Psych: Anxiety, Bipolar disorder, ADD/ADHD Musculoskeletal: None Derm: None - Past Surgical History Past Surgical History: Yes - Present Medications Home Medications: Ambulatory Orders Medication Instructions Recorded Confirmed Quetiapine Fumarate [Seroquel] 2 tab PO QPM #60 tablet 06/10/19 buPROPion [Wellbutrin Sr] 150 mg PO BID #60 tablet 06/10/19 Cyclobenzaprine [Flexeril] 10 mg PO TID PRN #10 tablet 06/15/19 Albuterol Sulf [Ventolin Hfa 1 - 2 puffs INH Q4HR PRN #1 inhaler 07/30/19 Inhaler] Benzonatate [Tessalon Perle] 100 - 200 mg PO TID PRN #30 capsule 07/30/19 Cetirizine HCl/Pseudoephedrine 1 each PO BID PRN #30 tab.er.12h 07/30/19 [Zyrtec-D Tablet] predniSONE [Deltasone] 10 mg PO [id number] #42 tab 07/30/19 Ondansetron Odt [Zofran] 4 mg TL Q6H PRN #10 tablet 08/18/19 Cephalexin [Keflex] 500 mg PO Q6H #28 capsule 08/21/19 Methocarbamol 500 mg PO TID PRN #15 tablet 08/21/19 - Allergies Allergies/Adverse Reactions: Allergies Allergy/AdvReac Type Severity Reaction Status Date / Time Opioids - Morphine Analogues Allergy Unknown Verified 08/21/19 17:14 - Social History Does the pt smoke?: Yes Smoking Status: Current every day smoker Does the pt drink ETOH?: No Does the pt have substance abuse?: No - Immunizations Immunizations are current?: Yes Immunizations: TDAP current <10years - POLST Patient has POLST: No PD ED PE NORMAL - Vitals Vital signs reviewed: Yes - General General: Alert and oriented X 3 - HEENT HEENT: Atraumatic - Cardiac Cardiac: RRR - Extremities Extremities: Other (Normal range of motion of his right knee without pain or locking. There is a small pustule on the anterior skin in front of the patella which appears to be a very mild folliculitis, with 1.5 cm diameter of surrounding erythema, no fluctuance. There is no redness along the joint line. Patient has 5 out of 5 strength with ankle dorsi flexion and plantar flexion, as well as knee extension and plantar flexion. No ACL/PCL/MCL/LCL laxity. Distal capillary refill is brisk, and sensation to light touch is intact.) - Neuro Neuro: Alert and oriented X 3 Results - Vitals Vitals: Vital Signs - 24 hr 08/21/19 08/21/19 17:11 22:11 Temperature 36.2 C L Heart Rate 101 H 87 Respiratory 18 18 Rate Blood Pressure 151/86 H 132/84 H O2 Saturation 97 97 Oxygen O2 Source Room air - Rads (name of study) XR R knee Radiology: Other (No acute abnormality) PD MEDICAL DECISION MAKING - ED course Complexity details: considered differential (Arthritis, ligamentous injury, fracture, contusion, cellulitis) ED course: Pt is very well appearing and ambulatory, he bears weight on the right leg without issue. He has full active ROM of the right knee. There is a very small pustule on the skin overlying the right patella, which patient decided to squeeze at and it drained a miniscule drop of purelent drainage. No signs of septic joint, he has excellent ROM, and the lesion is located superficially over the patella. No signs of ligamentous injury on my exam. XR negative. I discussed RICE, PCP follow up, and prescribed a small number of methocarbamol to try for additional pain control as patient states tylenol and ibuprofen has not been very effective. I also prescribed keflex for his mild cellulitis. Return precautions discussed and patient was discharged home. Departure - Departure Disposition: Home, Self Care Clinical Impression: Knee pain Condition: Good Follow-Up: Kings Hyatt PA-C [Primary Care Provider] - (Within 1-2 weeks) Prescriptions: Cephalexin [Keflex] 500 mg PO Q6H #28 capsule Methocarbamol 500 mg PO TID PRN #15 tablet PRN Reason: Pain Comments: You were seen today for pain in your knee. You appear to have an infection of the skin around your knee, please take the antibiotic for this. Please take ibuprofen and Tylenol for your pain, you may use the methocarbamol as well. If you are having any worsening signs of infection such as fever, or spreading of the redness, return to the emergency department. Methocarbamol can be mildly sedating, do not take it before driving or operating machinery. Discharge Date/Time: 08/21/19 22:12
[2019-08-21] MEDS ORDERED: ACETAMINOPHEN 325 MG TABLET PO STA (20:24)
[2019-08-21] MEDS ORDERED: oxyCODONE 5 MG TABLET PO STA (20:24)
[2019-08-21] MEDS ORDERED: IBUPROFEN 600 MG TABLET PO STA (20:24)
--- NOTE | 2019-08-21 21:14 | XRAY Report ---
Reason: "knee gave out" knee pain Procedure Date: 08/21/2019 Accession Number: [id number] / [id number] Procedure: XR - Knee 3 View RT CPT Code: Final Report FULL RESULT: EXAM: RIGHT KNEE RADIOGRAPHY EXAM DATE: 08/21/2019 08:39 PM. CLINICAL HISTORY: Knee gave out knee pain. COMPARISON: KNEE 4 VIEW RT 04/28/2019 6:26 PM. TECHNIQUE: 3 views. FINDINGS: Bones: No acute fractures or suspicious bone lesions. Small exostosis at the medial proximal tibial metaphysis. Joints: No effusion. No subluxations. Soft Tissues: Unremarkable. IMPRESSION: No acute radiographic abnormalities. RADIA
[2019-08-21] MEDS ORDERED: cephALEXin 250 MG CAPSULE PO STA (22:03)
[2019-08-21 22:11] VITALS: BP 132/84
== END 2019-08-21 22:12 | disposition home or self-care (01) ==
LOC: ED 16:50
DX: M25.561 Pain in right knee (principal); L08.9 Local infection of the skin and subcutaneous tissue, unspecified; F17.200 Nicotine dependence, unspecified, uncomplicated
CPT/HCPCS: 73562; 99283; A9270

== ENCOUNTER 2019-11-04 09:12 | Emergency (ER) | payer MEDICAID ==
[2019-11-04 09:19] VITALS: BP 147/83
--- NOTE | 2019-11-04 09:45 | ED Physician Documentation ---
PD HPI URI - Stated complaint Stated Complaint: SORE THROAT - Chief complaint Chief Complaint: Heent - History obtained from History obtained from: Patient - History of Present Illness Timing - onset: How many weeks ago (1) Timing duration: Weeks (1) Timing details: Gradual onset (noted a sore left upper roof of mouth that got bigger. It started draining yesterday. Still hurting a lot.), Still present in ED Associated symptoms: NVD. No: Fever, Nasal congestion, Swollen nodes Contributing factors: No: Sick contact, Travel, Immunocompromised Similar symptoms before: Has not had sx before Recently seen: Emergency Dept Review of Systems Constitutional: denies: Fever, Chills Nose: denies: Rhinorrhea / runny nose, Congestion Throat: reports: Sore throat Respiratory: denies: Cough GI: denies: Nausea, Vomiting PD PAST MEDICAL HISTORY - Past Medical History Cardiovascular: None Respiratory: None Neuro: None Endocrine/Autoimmune: None GI: None : None HEENT: None Psych: Anxiety, Bipolar disorder, ADD/ADHD Musculoskeletal: None Derm: None - Past Surgical History Past Surgical History: Yes - Present Medications Home Medications: Ambulatory Orders Medication Instructions Recorded Confirmed Quetiapine Fumarate [Seroquel] 2 tab PO QPM #60 tablet 06/10/19 buPROPion [Wellbutrin Sr] 150 mg PO BID #60 tablet 06/10/19 Cyclobenzaprine [Flexeril] 10 mg PO TID PRN #10 tablet 06/15/19 Albuterol Sulf [Ventolin Hfa 1 - 2 puffs INH Q4HR PRN #1 inhaler 07/30/19 Inhaler] Benzonatate [Tessalon Perle] 100 - 200 mg PO TID PRN #30 capsule 07/30/19 Cetirizine HCl/Pseudoephedrine 1 each PO BID PRN #30 tab.er.12h 07/30/19 [Zyrtec-D Tablet] predniSONE [Deltasone] 10 mg PO [id number] #42 tab 07/30/19 Ondansetron Odt [Zofran] 4 mg TL Q6H PRN #10 tablet 08/18/19 Cephalexin [Keflex] 500 mg PO Q6H #28 capsule 08/21/19 methocarbamoL [Methocarbamol] 500 mg PO TID PRN #15 tablet 08/21/19 Chlorhexidine Gluconate [Peridex] 15 ml MM TID #118 ml 11/04/19 Clindamycin HCl [Clindamycin 300MG 300 mg PO TID #21 capsule 11/04/19 CAP] Lidocaine Viscous 2% [Xylocaine 5 ml PO Q4H PRN #100 ml 11/04/19 Viscous 2%] - Allergies Allergies/Adverse Reactions: Allergies Allergy/AdvReac Type Severity Reaction Status Date / Time Opioids - Morphine Analogues Allergy Unknown Verified 11/04/19 09:17 - Social History Does the pt smoke?: Yes Smoking Status: Current every day smoker Does the pt drink ETOH?: No Does the pt have substance abuse?: No - Immunizations Immunizations are current?: Yes Immunizations: TDAP current <10years - POLST Patient has POLST: No PD ED PE NORMAL - Vitals Vital signs reviewed: Yes - General General: Alert and oriented X 3, No acute distress, Well developed/nourished - HEENT HEENT: Ears normal, Moist mucous membranes. No: Pharynx benign (left soft palatte with small ulcerative lesion with some purulent drainage. Redness of it. Rest of mouth without lesions. ) Results - Vitals Vitals: Vital Signs - 24 hr 11/04/19 09:17 Temperature 36.6 C Heart Rate 77 Respiratory 15 Rate Blood Pressure 147/83 H O2 Saturation 97 Oxygen O2 Source Room air PD MEDICAL DECISION MAKING - ED course Complexity details: considered differential (single lesion soft palatte left. No other oral lesions. ), d/w patient Departure - Departure Disposition: 01 Home, Self Care Clinical Impression: Abscess of palate Condition: Stable Record reviewed to determine appropriate education?: Yes Follow-Up: Kings Hyatt PA-C [Primary Care Provider] - Prescriptions: Chlorhexidine Gluconate [Peridex] 15 ml MM TID #118 ml Clindamycin HCl [Clindamycin 300MG CAP] 300 mg PO TID #21 capsule Lidocaine Viscous 2% [Xylocaine Viscous 2%] 5 ml PO Q4H PRN #100 ml PRN Reason: Pain Comments: Tylenol every 4-6 hours as needed for pains. You can use lidocaine along with some Benadryl liquid and swish it in the area that is hurting to decrease pain as well. Using antiseptic chlorhexidine oral rinse swish and spit prior to that 3 times a day. Clindamycin oral antibiotic 3 times a day for a week. I would anticipate improvement of this over the next 2 to 3 days and resolution by a week. Recheck if not improving in that way. Discharge Date/Time: 11/04/19 10:50
[2019-11-04] MEDS ORDERED: LIDOCAINE VISCOUS 2% 15 ML UDC MM STA (10:28)
[2019-11-04] MEDS ORDERED: CLINDAMYCIN 150 MG CAPSULE PO STA (10:29)
[2019-11-04] MEDS ORDERED: diphenhydrAMINE ELIXIR 25 MG/10 ML UDC PO STA (10:29)
[2019-11-04] MEDS ORDERED: ACETAMINOPHEN 325 MG TABLET PO STA (10:29)
== END 2019-11-04 10:50 | disposition home or self-care (01) ==
LOC: ED 09:12
DX: K12.2 Cellulitis and abscess of mouth (principal); F17.200 Nicotine dependence, unspecified, uncomplicated
CPT/HCPCS: 99283; A9270

== ENCOUNTER 2019-11-17 14:04 | Emergency (ER) | payer MEDICAID ==
[2019-11-17 14:17] VITALS: BP 121/76
[2019-11-17] MEDS ORDERED: IBUPROFEN 600 MG TABLET PO STA (14:24)
--- NOTE | 2019-11-17 14:26 | ED Physician Documentation ---
PD HPI LOWER EXT INJURY - Stated complaint Stated Complaint: L HIP/SIDE PX - Chief complaint Chief Complaint: Trauma Ext - History obtained from History obtained from: Patient (Patient fell in the restroom at [employer] at 11 10 in the morning. He landed onto the left hip care.Pain has gradually worsened, there is a lot of spasm. No distal numbness. There is no head injury.GCS 15 alert and oriented x3), Family - History of Present Illness PD HPI LOW EXT INJURY LOCATION: Left, Hip Review of Systems Ten Systems: 10 systems reviewed and negative Constitutional: reports: Reviewed and negative Eyes: reports: Reviewed and negative Ears: reports: Reviewed and negative Nose: reports: Reviewed and negative Throat: reports: Reviewed and negative Cardiac: reports: Reviewed and negative Respiratory: reports: Reviewed and negative GI: reports: Reviewed and negative : reports: Reviewed and negative Skin: reports: Reviewed and negative Musculoskeletal: reports: Joint pain Neurologic: reports: Reviewed and negative Psychiatric: reports: Reviewed and negative Endocrine: reports: Reviewed and negative Immunocompromised: reports: Reviewed and negative PD PAST MEDICAL HISTORY - Past Medical History Cardiovascular: None Respiratory: None Neuro: None Endocrine/Autoimmune: None GI: None : None HEENT: None Psych: Anxiety, Bipolar disorder, ADD/ADHD Musculoskeletal: None Derm: None - Past Surgical History Past Surgical History: Yes - Present Medications Home Medications: Ambulatory Orders Medication Instructions Recorded Confirmed Quetiapine Fumarate [Seroquel] 2 tab PO QPM #60 tablet 06/10/19 buPROPion [Wellbutrin Sr] 150 mg PO BID #60 tablet 06/10/19 Cyclobenzaprine [Flexeril] 10 mg PO TID PRN #10 tablet 06/15/19 Albuterol Sulf [Ventolin Hfa 1 - 2 puffs INH Q4HR PRN #1 inhaler 07/30/19 Inhaler] Benzonatate [Tessalon Perle] 100 - 200 mg PO TID PRN #30 capsule 07/30/19 Cetirizine HCl/Pseudoephedrine 1 each PO BID PRN #30 tab.er.12h 07/30/19 [Zyrtec-D Tablet] predniSONE [Deltasone] 10 mg PO [id number] #42 tab 07/30/19 Ondansetron Odt [Zofran] 4 mg TL Q6H PRN #10 tablet 08/18/19 Cephalexin [Keflex] 500 mg PO Q6H #28 capsule 08/21/19 methocarbamoL [Methocarbamol] 500 mg PO TID PRN #15 tablet 08/21/19 Chlorhexidine Gluconate [Peridex] 15 ml MM TID #118 ml 11/04/19 Clindamycin HCl [Clindamycin 300MG 300 mg PO TID #21 capsule 11/04/19 CAP] Lidocaine Viscous 2% [Xylocaine 5 ml PO Q4H PRN #100 ml 11/04/19 Viscous 2%] Cyclobenzaprine [Flexeril] 10 mg PO TID PRN #20 tablet 11/17/19 Naproxen [Naprosyn] 500 mg PO BID PRN 15 Days #30 11/17/19 tablet - Allergies Allergies/Adverse Reactions: Allergies Allergy/AdvReac Type Severity Reaction Status Date / Time Opioids - Morphine Analogues Allergy Unknown Verified 11/17/19 14:12 - Social History Does the pt smoke?: Yes Smoking Status: Current every day smoker Does the pt drink ETOH?: No Does the pt have substance abuse?: No - Immunizations Immunizations are current?: Yes Immunizations: TDAP current <10years - POLST Patient has POLST: No PD ED PE NORMAL - Vitals Vital signs reviewed: Yes - General General: Alert and oriented X 3, No acute distress - HEENT HEENT: PERRL - Neck Neck: Supple, no meningeal sign - Cardiac Cardiac: RRR, No murmur - Respiratory Respiratory: No respiratory distress, Clear bilaterally - Abdomen Abdomen: Normal bowel sounds, Soft, Non tender, Non distended - Derm Derm: Warm and dry - Extremities Extremities: No deformity, No tenderness to palpate (left hip,). No: No edema, No calf tenderness / cord - Neuro Neuro: Alert and oriented X 3 - Psych Psych: Normal mood, Normal affect Results - Vitals Vitals: Vital Signs - 24 hr 11/17/19 14:12 Temperature 36.6 C Heart Rate 71 Respiratory 18 Rate Blood Pressure 121/76 O2 Saturation 98 Oxygen O2 Source Room air - Rads (name of study) No standard instances Radiology: Final report received (No acute displaced fracture or malalignment) PD MEDICAL DECISION MAKING - ED course Complexity details: d/w patient ED course: Patient is disclosed negative x-ray. He is given impression of contusion of the left hip, continue taking ibuprofen for pain, follow with primary care doctor for further management which may include physical therapy referral. Departure - Departure Disposition: 01 Home, Self Care Clinical Impression: Contusion of left hip Qualifiers: Encounter type: initial encounter Qualified Code(s): S70.02XA - Contusion of left hip, initial encounter Low back strain Qualifiers: Encounter type: initial encounter Qualified Code(s): S39.012A - Strain of muscle, fascia and tendon of lower back, initial encounter Condition: Stable Instructions: ED Sprain Strain Lumbar, ED Contusion Hip Follow-Up: Kings Hyatt PA-C [Primary Care Provider] - Prescriptions: Cyclobenzaprine [Flexeril] 10 mg PO TID PRN #20 tablet PRN Reason: Spasms Naproxen [Naprosyn] 500 mg PO BID PRN 15 Days #30 tablet PRN Reason: Pain Comments: please followup with your doctor for further managements; maybe a referral to PT
--- NOTE | 2019-11-17 14:53 | XRAY Report ---
Reason: fall Procedure Date: 11/17/2019 Accession Number: [id number] / [id number] Procedure: XR - Hip w/Pelvis 2-3V LT CPT Code: Final Report FULL RESULT: EXAM: LEFT HIP RADIOGRAPHY EXAM DATE: 11/17/2019 02:45 PM. CLINICAL HISTORY: Fall. COMPARISON: None. TECHNIQUE: 2 views. FINDINGS: Bones: Normal. No fractures or bone lesion. Joints: Normal. No dislocation. The hip joint space is preserved. Soft Tissues: Normal. No soft tissue swelling. IMPRESSION: No acute displaced fracture or malalignment. RADIA
== END 2019-11-17 15:06 | disposition home or self-care (01) ==
LOC: ED 14:04
DX: S70.02XA Contusion of left hip, initial encounter (principal); S39.012A Strain of muscle, fascia and tendon of lower back, initial encounter; W01.0XXA Fall on same level from slipping, tripping and stumbling without subsequent striking against object, initial encounter; Y93.E8 Activity, other personal hygiene; Y92.512 Supermarket, store or market as the place of occurrence of the external cause; F17.200 Nicotine dependence, unspecified, uncomplicated
CPT/HCPCS: 73502; 99283; 99284; A9270

== ENCOUNTER 2020-02-09 12:53 | Emergency (ER) | payer OTHER, MEDICAID ==
[2020-02-09] MEDS ORDERED: LIDOCAINE 1%-EPI 1:100000 20 ML MDV SUBQ STA (13:15)
--- NOTE | 2020-02-09 13:18 | ED Physician Documentation ---
PD HPI LOWER EXT INJURY - Stated complaint Stated Complaint: L LEG LAC - Chief complaint Chief Complaint: Laceration - History obtained from History obtained from: Patient (Pt was cutting brush with a saw of some sort and the saw "jumped" and he accidentally cut himself in the right haro. 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 No other injuries. No treatment at home. Last td last year.) - History of Present Illness PD HPI LOW EXT INJURY LOCATION: Right, Lower leg Type of injury: Laceration Review of Systems Constitutional: reports: Reviewed and negative Eyes: reports: Reviewed and negative Ears: reports: Reviewed and negative Cardiac: reports: Reviewed and negative Respiratory: reports: Reviewed and negative GI: reports: Reviewed and negative Skin: reports: Laceration (s) (Right leg lac) Musculoskeletal: reports: Extremity pain (right lower leg pain). denies: Joint pain, Extremity swelling, Joint swelling Neurologic: reports: Reviewed and negative Psychiatric: reports: Reviewed and negative PD PAST MEDICAL HISTORY - Past Medical History Cardiovascular: None Respiratory: None Neuro: None Endocrine/Autoimmune: None GI: None : None HEENT: None Psych: Anxiety, Bipolar disorder, ADD/ADHD Musculoskeletal: None Derm: None - Past Surgical History Past Surgical History: Yes - Present Medications Home Medications: Ambulatory Orders Medication Instructions Recorded Confirmed Quetiapine Fumarate [Seroquel] 2 tab PO QPM #60 tablet 06/10/19 buPROPion [Wellbutrin Sr] 150 mg PO BID #60 tablet 06/10/19 Cyclobenzaprine [Flexeril] 10 mg PO TID PRN #10 tablet 06/15/19 Albuterol Sulf [Ventolin Hfa 1 - 2 puffs INH Q4HR PRN #1 inhaler 07/30/19 Inhaler] Benzonatate [Tessalon Perle] 100 - 200 mg PO TID PRN #30 capsule 07/30/19 Cetirizine HCl/Pseudoephedrine 1 each PO BID PRN #30 tab.er.12h 07/30/19 [Zyrtec-D Tablet] predniSONE [Deltasone] 10 mg PO [id number] #42 tab 07/30/19 Ondansetron Odt [Zofran] 4 mg TL Q6H PRN #10 tablet 08/18/19 Cephalexin [Keflex] 500 mg PO Q6H #28 capsule 08/21/19 methocarbamoL [Methocarbamol] 500 mg PO TID PRN #15 tablet 08/21/19 Chlorhexidine Gluconate [Peridex] 15 ml MM TID #118 ml 11/04/19 Clindamycin HCl [Clindamycin 300MG 300 mg PO TID #21 capsule 11/04/19 CAP] Lidocaine Viscous 2% [Xylocaine 5 ml PO Q4H PRN #100 ml 11/04/19 Viscous 2%] Cyclobenzaprine [Flexeril] 10 mg PO TID PRN #20 tablet 11/17/19 Naproxen [Naprosyn] 500 mg PO BID PRN 15 Days #30 11/17/19 tablet Cephalexin [Keflex] 500 mg PO Q6H #28 capsule 02/09/20 Hydrocodone/Acetaminophen 1 - 2 each PO Q6H PRN #14 tablet 02/09/20 [Hydrocodon-Acetaminophen 5-325] - Allergies Allergies/Adverse Reactions: Allergies Allergy/AdvReac Type Severity Reaction Status Date / Time Opioids - Morphine Analogues Allergy Unknown Verified 02/09/20 13:08 - Social History Does the pt smoke?: Yes Smoking Status: Current every day smoker Does the pt drink ETOH?: No Does the pt have substance abuse?: No - Immunizations Immunizations are current?: Yes Immunizations: TDAP current <10years - POLST Patient has POLST: No PD ED PE NORMAL - Vitals Vital signs reviewed: Yes - General General: Alert and oriented X 3, No acute distress, Well developed/nourished - HEENT HEENT: Atraumatic, Moist mucous membranes - Cardiac Cardiac: RRR, No murmur - Respiratory Respiratory: No respiratory distress, Clear bilaterally - Abdomen Abdomen: Normal bowel sounds, Soft, Non tender, Non distended - Derm Derm: Normal color, Warm and dry, Other (7cm x 3cm laceration right haro. ) - Extremities Extremities: No calf tenderness / cord, Other (laceration left haro with small chip of bone noted. Tender palpation of the skin. No calf pain or fullness. 2+ dp/pt pulses, normal sensation, full ROM of left knee and ankle. ). No: No tenderness to palpate (tender mid left haro ), No edema (edematous mid haro around injury site) - Neuro Neuro: Alert and oriented X 3 Eye Opening: Spontaneous Motor: Obeys Commands Verbal: Oriented GCS Score: 15 - Psych Psych: Normal mood, Normal affect Results - Vitals Vitals: Vital Signs - 24 hr 02/09/20 02/09/20 02/09/20 13:00 13:16 14:52 Temperature 36.8 C Heart Rate 92 87 73 Respiratory 16 20 22 Rate Blood Pressure 142/98 H 147/106 H 135/72 H O2 Saturation 98 99 99 Oxygen O2 Source Room air Procedures - Laceration (location) left leg Wound type: Irregular (jagged skin edges), Into subcut fat, Contaminated Neurovascular status: Sensory intact, Motor intact, Vascular intact Anesthesia: Lidocaine 1% with epi Wound Preparation: Betadine, Irrigated copiously NS, Debrided moderately, Wound edges modified Deep layer closure: Vicryl, size #-0 - enter number (4), # sutures - enter number (5) Skin layer closure: Nylon, Interrupted (2), Running (2 sets of running locked sutures), Size #-0 - enter number (4) Other: Patient tolerated well, No complications, Neurovascular intact, Dressing applied, Tetanus UTD Complexity: Intermediate PD MEDICAL DECISION MAKING - ED course Complexity details: reviewed results, d/w patient ED course: Pt presented with laceration to the mid left haro. An xray revealed a communiuted fracture of the cortex of the tibial diaphysis. I spoke with Ortho Dr. Galarza who very kindly reviewed the images and advised to irrigate it copiously and close the skin wound. I obtained informed verbal consent from the patient for suture repair. We copiously irrigated the wound and moderately debrided the wound. The edges were jagged and there were areas of non-viable skin that was debrided. The wound was closed with a combination of continous locking sutures and interrupted sutures and 5 #4.0 vicryl sutures were placed in the subq tissue to bring the wound edges together. Place pt on Keflex for 7 days. Pt will follow up in the ortho clinic on Saturday 02/10 w/ Dr. Galarza. The wound was cleaned and dressed. Pt provided crutches and advised to keep leg elevated whenever possible. He may apply a cool compress to the site. He was instructed on when to return for suture removal and to return at anytime if there were signs or symptoms of a wound infection. Pt voices understanding. I will send him home w/ prn Vicodin which pt says he tolerates fine. Departure - Departure Disposition: 01 Home, Self Care Clinical Impression: Laceration Tibia fracture Qualifiers: Encounter type: initial encounter Tibia location: shaft Fracture type: open Fracture morphology: comminuted Fracture alignment: nondisplaced Laterality: right Condition: Good Instructions: ED Fx Lower Ext, ED Laceration Repair Infec Follow-Up: Aristides Galarza MD [Provider Admit Priv/Credential] - Prescriptions: Cephalexin [Keflex] 500 mg PO Q6H #28 capsule Hydrocodone/Acetaminophen [Hydrocodon-Acetaminophen 5-325] 1 - 2 each PO Q6H PRN #14 tablet PRN Reason: pain Comments: You sustained a laceration of your right leg and were found to have a fracture of the outer layer of bone of the right tibia. We cleaned the wound thoroughly with normal saline and betadine and then the wound was closed with sutures. These sutures must be removed in 10 days. It is very important that you follow up with the orthopedist (bone doctor) on Saturday 02/10. Dr. Galarza, the orthopedic physician, will arrange for you to be seen in the ortho clinic on Friday. Please return at anytime if you develop fever/chills, or redness, increased swelling, or pus draining from the wound. Keep the leg elevated whenever possible. Apply a cool compress to the lower leg (over a towel) for 15 minutes every 2 hours.
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
[2020-02-09] MEDS ORDERED: HYDROcod/ACETAM 5/325 MG TABLET PO STA (13:59)
[2020-02-09 14:53] VITALS: BP 135/72
== END 2020-02-09 15:30 | disposition home or self-care (01) ==
LOC: ED 12:53
DX: S82.255B Nondisplaced comminuted fracture of shaft of left tibia, initial encounter for open fracture type I or II (principal); W20.8XXA Other cause of strike by thrown, projected or falling object, initial encounter; Y93.H2 Activity, gardening and landscaping; F17.200 Nicotine dependence, unspecified, uncomplicated
CPT/HCPCS: 12036; 73590; 99283; A9270

== ENCOUNTER 2021-03-02 14:10 | Emergency (ER) | payer MEDICAID ==
--- OUTSIDE RECORDS SUMMARY | 2021-03-02 14:13 | EXTERNAL MEDICAL SUMMARY RPT | Continuity of Care Document ---
:1985 Demographics Phone Unavailable Preferred Language Chinese Marital Status Unknown Hoahaoism Affiliation Unknown Race Unknown Ethnic Group Unknown Author Organization [place] Address [address] [phone] Phone Care Team Providers Name Role Phone Lisset, Ajay Unavailable Unavailable Problems date description facility 20210209 [facility] 20210119 Pain in [facility] 20210119 Pain in left ankle and joints of [facility] foot Procedures date description facility 20210208 [facility] 20210119 [facility] 20201223 [facility] 20201204 [facility] Vital Signs date measurement value source 20201204 weight_standard 122.47 lb 20201204 weight_metric 55.55 kg 20201204 temperature_standard 98.1 F 20201204 temperature_metric 36.72 C 20201204 respiration_rate 20 /min 20201204 height_standard 71 in 20201204 height_metric 180.34 cm 20201204 heart_rate 82 /min 20201204 BP_systolic 141 mm[Hg] 20201204 BP_diastolic 80 mm[Hg] 20201204 BMI 37.6 kg/m2 20201223 weight_standard 117.93 lb 20201223 weight_metric 53.49 kg 20201223 temperature_standard 97.6 F 20201223 temperature_metric 36.44 C 20201223 respiration_rate 16 /min 20201223 height_standard 71 in 20201223 height_metric 180.34 cm 20201223 heart_rate 75 /min 20201223 BP_systolic 161 mm[Hg] 20201223 BP_diastolic 85 mm[Hg] 20201223 BMI 36.2 kg/m2 20210119 respiration_rate 20 /min 20210119 heart_rate 73 /min 20210119 BP_systolic 130 mm[Hg] 20210119 BP_diastolic 78 mm[Hg] 20210208 weight_standard 122.47 lb 20210208 weight_metric 55.55 kg 20210208 temperature_standard 98.2 F 20210208 temperature_metric 36.78 C 20210208 height_standard 71 in 20210208 height_metric 180.34 cm 20210208 BMI 37.6 kg/m2 20210209 respiration_rate 16 /min 20210209 heart_rate 66 /min 20210209 BP_systolic 110 mm[Hg] 20210209 BP_diastolic 49 mm[Hg]
[2021-03-02 14:26] VITALS: BP 132/82
--- OUTSIDE RECORDS SUMMARY | 2021-03-02 14:33 | EXTERNAL MEDICAL SUMMARY RPT | Continuity of Care Document ---
:1985 Demographics Phone Unavailable Preferred Language Belgian Marital Status Unknown Restorationism Affiliation Unknown Race Unknown Ethnic Group Unknown Author Organization [place] Address [address] [phone] Phone Care Team Providers Name Role Phone Lisset Unavailable Unavailable Problems date description facility 20210209 [facility] 20210119 Pain in [facility] 20210119 Pain in left ankle and joints of [facility] foot Procedures date description facility 20210208 [facility] 20210119 [facility] 20201223 [facility] 20201204 [facility] Vital Signs date measurement value source [...]
== END 2021-03-02 14:46 | disposition left against medical advice (07) ==
LOC: ED 14:10
DX: Z53.21 Procedure and treatment not carried out due to patient leaving prior to being seen by health care provider (principal)

== ENCOUNTER 2021-03-30 15:15 | Emergency (ER) | payer MEDICAID ==
[2021-03-30] MEDS ORDERED: cephALEXin 250 MG CAPSULE PO STA (15:53)
[2021-03-30] MEDS ORDERED: MELOXICAM 7.5 MG TABLET PO STA (15:53)
[2021-03-30] MEDS ORDERED: SULFAMETH/TRIMETH DS 800/160 MG TABLET PO STA (15:53)
--- NOTE | 2021-03-30 15:55 | ED Physician Documentation ---
History of Present Illness - Stated complaint Stated Complaint: RT TOE PX - Chief complaint Chief Complaint: Ext Problem - History obtained from History obtained from: Patient - History of Present Illness Timing: How many days ago (3) Pain level max: 7 Pain level now: 6 - Additonal information Additional information: Patient is a 36-year-old male who presents to the emergency department after removing his own right great toenail at home several days ago. Decreased increased swelling and pain recently. Worse with movements and palpation. States it is red and swollen now. No drainage. Review of Systems Ten Systems: 10 systems reviewed and negative Constitutional: denies: Fever, Chills GI: denies: Vomiting, Diarrhea Skin: denies: Rash Musculoskeletal: denies: Neck pain, Back pain Neurologic: denies: Headache PD PAST MEDICAL HISTORY - Past Medical History Cardiovascular: None Respiratory: None Neuro: None Endocrine/Autoimmune: None GI: None : None HEENT: None Psych: Anxiety, Bipolar disorder, ADD/ADHD Musculoskeletal: None Derm: None - Past Surgical History Past Surgical History: Yes - Present Medications Home Medications: Ambulatory Orders Medication Instructions Recorded Confirmed Quetiapine Fumarate [Seroquel] 2 tab PO QPM #60 tablet 06/10/19 buPROPion [Wellbutrin Sr] 150 mg PO BID #60 tablet 06/10/19 Cyclobenzaprine [Flexeril] 10 mg PO TID PRN #10 tablet 06/15/19 Albuterol Sulf [Ventolin Hfa 1 - 2 puffs INH Q4HR PRN #1 inhaler 07/30/19 Inhaler] Benzonatate [Tessalon Perle] 100 - 200 mg PO TID PRN #30 capsule 07/30/19 Cetirizine HCl/Pseudoephedrine 1 each PO BID PRN #30 tab.er.12h 07/30/19 [Zyrtec-D Tablet] predniSONE [Deltasone] 10 mg PO [id number] #42 tab 07/30/19 Ondansetron Odt [Zofran] 4 mg TL Q6H PRN #10 tablet 08/18/19 cephALEXin [Keflex] 500 mg PO Q6H #28 capsule 08/21/19 methocarbamoL [Methocarbamol] 500 mg PO TID PRN #15 tablet 08/21/19 Chlorhexidine Gluconate [Peridex] 15 ml MM TID #118 ml 01/23/20 Clindamycin HCl [Clindamycin 300MG 300 mg PO TID #21 capsule 11/04/19 CAP] Lidocaine Viscous 2% [Xylocaine 5 ml PO Q4H PRN #100 ml 11/04/19 Viscous 2%] Cyclobenzaprine [Flexeril] 10 mg PO TID PRN #20 tablet 11/17/19 Naproxen [Naprosyn] 500 mg PO BID PRN 15 Days #30 11/17/19 tablet Hydrocodone/Acetaminophen 1 - 2 each PO Q6H PRN #14 tablet 02/09/20 [Hydrocodon-Acetaminophen 5-325] cephALEXin [Keflex] 500 mg PO Q6H #28 capsule 02/09/20 Meloxicam [Mobic] 7.5 mg PO BID PRN #20 tablet 03/30/21 Sulfamethox/Trimeth 800/160 1 each PO BID #14 tablet 03/30/21 [Bactrim Ds 800/160] cephALEXin [Keflex] 500 mg PO Q6H #28 cap 03/30/21 - Allergies Allergies/Adverse Reactions: Allergies Allergy/AdvReac Type Severity Reaction Status Date / Time Opioids - Morphine Analogues Allergy Unknown Verified 03/30/21 15:42 - Social History Does the pt smoke?: Yes Smoking Status: Current every day smoker Does the pt drink ETOH?: No Does the pt have substance abuse?: No - Immunizations Immunizations are current?: Yes Immunizations: TDAP current <10years - POLST Patient has POLST: No PD ED PE NORMAL - Vitals Vital signs reviewed: Yes - General General: Alert and oriented X 3, No acute distress - HEENT HEENT: Moist mucous membranes - Derm Derm: Warm and dry - Extremities Extremities: Other (Tender to palpation over the right great toe and the right first MTP joint. Erythema and swelling. No drainage. No drainable abscess. Neurovascularly intact. Otherwise normal examination of the foot. The erythema is restricted to the great toe itself.) - Neuro Neuro: Alert and oriented X 3 - Psych Psych: Normal mood, Normal affect Results - Vitals Vitals: Vital Signs - 24 hr 03/30/21 15:39 Temperature 36.2 C L Heart Rate 72 Respiratory 16 Rate Blood Pressure 156/79 H O2 Saturation 98 Oxygen O2 Source Room air PD MEDICAL DECISION MAKING - ED course Complexity details: considered differential, d/w patient ED course: Patient with what appears to be cellulitis of the right great toe after he removed his own toenail at home. No drainable abscess. The pulp of the digit is soft. Neurovascularly intact. Full range of motion of the MTP joint with only mild pain. No evidence of septic joint. No streaking. We will place on antibiotics and have him follow-up with podiatry. Patient counseled regarding signs and symptoms for which I believe and urgent re-evaluation would be necessary. Patient with good understanding of and agreement to plan and is comfortable going home at this time This document was made in part using voice recognition software. While efforts are made to proofread this document, sound alike and grammatical errors may occur. Patient states that he is allergic to all opioids. Departure - Departure Disposition: 01 Home, Self Care Clinical Impression: Cellulitis Qualifiers: Site of cellulitis: extremity Site of cellulitis of extremity: lower extremity Laterality: right Qualified Code(s): L03.115 - Cellulitis of right lower limb Condition: Good Instructions: ED Infec Skin Cellulitis Follow-Up: Lor Guerra, DPM [Provider Admit Priv/Credential] - Mark Gutierrez DPM [Physician No Access] - Gabriel Gabriel [Physician No Access] - Danny Gorman DPM [Physician No Access] - Prescriptions: Sulfamethox/Trimeth 800/160 [Bactrim Ds 800/160] 1 each PO BID #14 tablet cephALEXin [Keflex] 500 mg PO Q6H #28 cap Meloxicam [Mobic] 7.5 mg PO BID PRN #20 tablet PRN Reason: Pain Comments: Follow-up with podiatry for further care. Return if you worsen. Soak the wound in warm water 2-3 times daily. Keep the wound clean. Take all antibiotics until gone.
[2021-03-30 16:29] VITALS: BP 140/83
== END 2021-03-30 16:26 | disposition home or self-care (01) ==
LOC: ED 15:15
DX: L03.031 Cellulitis of right toe (principal); F17.200 Nicotine dependence, unspecified, uncomplicated; Z88.5 Allergy status to narcotic agent
CPT/HCPCS: 99283; 99284; A9270

== ENCOUNTER 2021-12-27 08:00 | Outpatient (CLI) | payer MEDICAID ==
[2021-12-27 21:00] LABS: HCT - HEMATOCRIT 41.4 % (42.0-52.0); MEAN CORPUSCULAR HEMOGLOBIN 30.6 pg (27.0-31.0); MEAN CORPUSCULAR HGB CONC 33.8 g/dL (32.0-36.0); MEAN CORPUSCULAR VOLUME 90.4 fL (80.0-94.0); MEAN PLATELET VOLUME 11.5 fL (7.4-11.4); RED BLOOD COUNT 4.58 10^6/uL (4.70-6.10); RED CELL DISTRIBUTION WIDTH 12.2 % (12.0-15.0); WHITE BLOOD COUNT 9.1 x10^3/uL (4.8-10.8)
[2021-12-27 21:18] LABS: RHEUMATOID FACTOR NEGATIVE (Negative)
[2021-12-27 21:49] LABS: URIC ACID 6.5 mg/dL (2.6-7.2)
[2021-12-31 18:26] LABS: ANA SCREEN NEGATIVE (NEGATIVE)
[2022-01-01 12:56] LABS: DNA (DS) ANTIBODY 2 IU/mL
== END 2021-12-27 23:59 ==
LOC: LAB.N 08:00
PROVIDERS: ATTEND Family Medicine
DX: M25.50 Pain in unspecified joint (principal)
CPT/HCPCS: 36415; 84550; 85027; 85651; 86038; 86140; 86200; 86225; 86430

== ENCOUNTER 2022-07-04 10:18 | Emergency (ER) | payer MEDICAID ==
[2022-07-04 10:30] VITALS: BP 178/100
--- NOTE | 2022-07-04 10:56 | ED Physician Documentation ---
PD HPI OPHTHO - Stated complaint Stated Complaint: FB RT EYE - Chief complaint Chief Complaint: Heent - History obtained from History obtained from: Patient - History of Present Illness Timing - onset: How many days ago (2) Timing - duration: Days (2) Timing - details: Abrupt onset, Still present Location: Right Quality / character: Aching Associated symptoms: Redness, Tearing, FB sensation. No: Photophobia, Loss of vision Contributing factors: FB (he felt a piece of metal go to eye when grinding. Feels FB since. He developed redness and watering but no purulence. Sees a small FB and hoped it would come out but still there.) Similar symptoms before: Has not had sx before Recently seen: Not recently seen Review of Systems Constitutional: denies: Fever, Chills Eyes: reports: Irritation. denies: Loss of vision, Photophobia Nose: denies: Rhinorrhea / runny nose, Congestion Throat: denies: Sore throat Respiratory: denies: Cough PD PAST MEDICAL HISTORY - Past Medical History Cardiovascular: None Respiratory: None Neuro: None Endocrine/Autoimmune: None GI: None : None HEENT: None Psych: Anxiety, Bipolar disorder, ADD/ADHD Musculoskeletal: None Derm: None - Past Surgical History Past Surgical History: Yes - Present Medications Home Medications: Ambulatory Orders Medication Instructions Recorded Confirmed Quetiapine Fumarate [Seroquel] 2 tab PO QPM #60 tablet 06/10/19 buPROPion [Wellbutrin Sr] 150 mg PO BID #60 tablet 06/10/19 Cyclobenzaprine [Flexeril] 10 mg PO TID PRN #10 tablet 06/15/19 Albuterol Sulf [Ventolin Hfa 1 - 2 puffs INH Q4HR PRN #1 inhaler 07/30/19 Inhaler] Benzonatate [Tessalon Perle] 100 - 200 mg PO TID PRN #30 capsule 07/30/19 Cetirizine HCl/Pseudoephedrine 1 each PO BID PRN #30 tab.er.12h 07/30/19 [Zyrtec-D Tablet] predniSONE [Deltasone] 10 mg PO [id number] #42 tab 07/30/19 Ondansetron Odt [Zofran] 4 mg TL Q6H PRN #10 tablet 08/18/19 cephALEXin [Keflex] 500 mg PO Q6H #28 capsule 08/21/19 methocarbamoL [Methocarbamol] 500 mg PO TID PRN #15 tablet 08/21/19 Chlorhexidine Gluconate [Peridex] 15 ml MM TID #118 ml 11/04/19 Clindamycin HCl [Clindamycin 300MG 300 mg PO TID #21 capsule 11/04/19 CAP] Lidocaine Viscous 2% [Xylocaine 5 ml PO Q4H PRN #100 ml 11/04/19 Viscous 2%] Cyclobenzaprine [Flexeril] 10 mg PO TID PRN #20 tablet 11/17/19 Naproxen [Naprosyn] 500 mg PO BID PRN 15 Days #30 11/17/19 tablet Hydrocodone/Acetaminophen 1 - 2 each PO Q6H PRN #14 tablet 02/09/20 [Hydrocodon-Acetaminophen 5-325] cephALEXin [Keflex] 500 mg PO Q6H #28 capsule 02/09/20 Meloxicam [Mobic] 7.5 mg PO BID PRN #20 tablet 03/30/21 Sulfamethox/Trimeth 800/160 1 each PO BID #14 tablet 03/30/21 [Bactrim Ds 800/160] cephALEXin [Keflex] 500 mg PO Q6H #28 cap 03/30/21 Erythromycin Base [Erythromycin 1 applic OP QID #3.5 gm 07/04/22 Ophthalmic Ointment] - Allergies Allergies/Adverse Reactions: Allergies Allergy/AdvReac Type Severity Reaction Status Date / Time Opioids - Morphine Analogues Allergy Unknown Verified 07/04/22 10:25 - Social History Does the pt smoke?: Yes Smoking Status: Current every day smoker Does the pt drink ETOH?: No Does the pt have substance abuse?: No - Immunizations Immunizations are current?: Yes Immunizations: TDAP current <10years - POLST Patient has POLST: No PD ED PE NORMAL - Vitals Vital signs reviewed: Yes - General General: Alert and oriented X 3, No acute distress, Well developed/nourished - HEENT HEENT: PERRL, EOMI PD ED PE EXPANDED - Eyes Eyes: Right eye, Injected conj/sclera, Corneal FB (small pinpoint metallic appearing FB without evident rust ring. ), Corneal abrasion, Anterior chambers clear, Normal fundi. No: Eyelid embedded FB, Exudate Results - Vitals Vitals: Vital Signs - 24 hr 07/04/22 10:25 Temperature 37.6 C Heart Rate 110 H Respiratory 19 Rate Blood Pressure 178/100 H O2 Saturation 98 Oxygen O2 Source Room air Procedures - General procedure General procedure: proparacine used to numb right eye. Ophthalmic dav used to get FB out without compications. There was already some corneal abrasion around the FB. Now just slightly more from FB removal. Departure - Departure Disposition: 01 Home, Self Care Clinical Impression: Corneal foreign body Qualifiers: Encounter type: initial encounter Laterality: right Qualified Code(s): T15.01XA - Foreign body in cornea, right eye, initial encounter Condition: Stable Record reviewed to determine appropriate education?: Yes Instructions: ED Foreign Body Cornea Follow-Up: Cirilo Horn MD [Provider Admit Priv/Credential] - Prescriptions: Erythromycin Base [Erythromycin Ophthalmic Ointment] 1 applic OP QID #3.5 gm Comments: I got the foreign body out from being embedded in the surface of the cornea. It looks like a small piece of metal. Sometimes that can develop a rust ring subsequently so if you were to see a coloration in that spot develop in the next day or 2 then return or follow-up with an fireworks display specialist. Otherwise this should heal up within the next 1 to 2 days and feel quite a bit better by tomorrow. You can coat the eye with some erythromycin ointment 4 times daily. This will reduce chance of infection as well. Tylenol or ibuprofen or both if needed for pains. Discharge Date/Time: 07/04/22 11:26
[2022-07-04] MEDS ORDERED: ACETAMINOPHEN 325 MG TABLET PO STA (11:07)
[2022-07-04] MEDS ORDERED: ERYTHROMYCIN OPHTH OINT 1 GM TUBE RIGHTEYE STA (11:07)
== END 2022-07-04 11:26 | disposition home or self-care (01) ==
LOC: ED 10:18
DX: T15.01XA Foreign body in cornea, right eye, initial encounter (principal); W45.8XXA Other foreign body or object entering through skin, initial encounter; W29.8XXA Contact with other powered hand tools and household machinery, initial encounter; Y93.H3 Activity, building and construction; F17.200 Nicotine dependence, unspecified, uncomplicated
CPT/HCPCS: 65205; 99282; A9270; J3490

== ENCOUNTER 2023-01-04 08:47 | Emergency (ER) | payer MEDICAID ==
[2023-01-04] MEDS ORDERED: KETOROLAC 60 MG/2 ML VIAL IM STA (09:19)
[2023-01-04] MEDS ORDERED: LIDOCAINE PATCH 5% TOP STA (09:19)
[2023-01-04] MEDS ORDERED: CYCLOBENZAPRINE 10 MG TABLET PO STA (09:19)
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
[2023-01-04 10:50] LABS: HEMOGLOBIN TOTAL, VENOUS WB 16.1 g/dL (12.0-18.0)
[2023-01-04 10:51] LABS: CARBOXYHEMOGLOBIN VENOUS 1.8 % (0-1.5); METHEMOGLOBIN VENOUS 0.3 % (0-1.5)
[2023-01-04 12:35] VITALS: BP 121/74
== END 2023-01-04 12:33 | disposition home or self-care (01) ==
LOC: ED 08:47
DX: S39.012A Strain of muscle, fascia and tendon of lower back, initial encounter (principal); X50.1XXA Overexertion from prolonged static or awkward postures, initial encounter; Y93.89 Activity, other specified; Y92.811 Bus as the place of occurrence of the external cause; T59.811A Toxic effect of smoke, accidental (unintentional), initial encounter; F17.200 Nicotine dependence, unspecified, uncomplicated
CPT/HCPCS: 82375; 96372; 99283; A9270